=== PATIENT | male | born 1995 | race Caucasian/White ===

== ENCOUNTER 2017-11-29 22:45 | Emergency (ER) | payer SELFPAY ==
[~2017-11-29] VITALS: Ht 182.9 cm; Wt 74.8 kg
[2017-11-29 22:55] VITALS: BP 131/88
[2017-11-29] MEDS ORDERED: LIDOCAINE 2%-EPI 1:100,000 30 ML VIAL ONE (23:28)
[2017-11-29] MEDS ORDERED: LIDOCAINE 1%-EPI 1:100,000 20 ML VIAL TP ONE (23:30)
[2017-11-29] MEDS ORDERED: ACETAMINOPHEN 325 MG TABLET PO ONE (23:30)
[2017-11-29] MEDS ORDERED: IBUPROFEN 600 MG TABLET PO ONE ×2 (23:30→23:49)
[2017-11-29] MEDS ORDERED: AMOX/CLAVULANATE 875 MG TABLET PO ONE (23:30)
--- NOTE | 2017-11-29 23:32 | NUR ---
JELLY MCKNIGHT AT BEDSIDE FOR LAC REPAIR.
[2017-11-29] MEDS ORDERED: AMOX/CLAVULANATE 875 MG TABLET ONE (23:48)
[2017-11-29] MEDS ORDERED: ACETAMINOPHEN 325 MG TABLET ONE (23:49)
--- NOTE | 2017-11-30 | NUR ---
PT PRESENT IN THE ER WITH HIS FRIEND DOG BITES . UPPER BACK AND LT LOWER LEG LACERATION. AND LT INDEX FINGER SCRATCH. VITALS STABLE. PT AMBULATING NORMALLY. NO ACTIVE BLEEDING .
--- NOTE | 2017-11-30 01:24 | NUR ---
Patient discharged to home in stable condition. Written and verbal after care instructions given. Patient verbalizes understanding of instruction. Ambulatory with a steady gait. No s/s of distress noted. Resp even and unlabored.
== END 2017-11-30 01:24 | disposition home or self-care (01) ==
LOC: ER 22:46
DX: S81.852A Open bite, left lower leg, initial encounter (principal); S61.251A Open bite of left index finger without damage to nail, initial encounter; S21.251A Open bite of right back wall of thorax without penetration into thoracic cavity, initial encounter; Z60.2 Problems related to living alone; W54.0XXA Bitten by dog, initial encounter; Y93.89 Activity, other specified; Y92.89 Other specified places as the place of occurrence of the external cause; Y99.8 Other external cause status
CPT/HCPCS: 12002; 73590; 99284; A4606; A6402; A6403 ×2; J3490; Z7610

== ENCOUNTER 2017-12-01 17:43 | Emergency (ER) | payer SELFPAY ==
[~2017-12-01] VITALS: Ht 182.9 cm; Wt 74.8 kg
[2017-12-01 17:43] VITALS: BP 123/64
[2017-12-01] MEDS ORDERED: TDAP [DIPH/PERTUSSIS/TET] 0.5 ML VIAL IM ONE ×2 (18:10→18:30)
== END 2017-12-01 18:20 | disposition home or self-care (01) ==
LOC: ER 17:45
DX: Z48.01 Encounter for change or removal of surgical wound dressing (principal); S81.812D Laceration without foreign body, left lower leg, subsequent encounter; S41.011D Laceration without foreign body of right shoulder, subsequent encounter; S31.010D Laceration without foreign body of lower back and pelvis without penetration into retroperitoneum, subsequent encounter; E80.4 Gilbert syndrome; Z60.2 Problems related to living alone; W54.0XXD Bitten by dog, subsequent encounter
CPT/HCPCS: 90715; A4606; Z7610

== ENCOUNTER 2019-02-14 16:39 | Emergency (ER) | payer OTHER ==
[~2019-02-14] VITALS: Ht 185.4 cm; Wt 81.6 kg
--- NOTE | 2019-02-14 16:40 | NUR ---
PT BIB SELF C/O NAUSEA/VOMITING AND ABDOMINAL PAIN STARTED 2 HRS AGO. PT IS AAOX4, NOT IN RESPIRATORY DISTRESS, HOOKED TO MONITOR, KEPT RESTED AND COMFORTABLE, WILL CONTINUE TO MONITOR.
--- NOTE | 2019-02-14 16:50 | NUR ---
SEEN AND EXAMINED BY MARY CRAIN
[2019-02-14] MEDS ORDERED: METOCLOPRAMIDE HCL 10 MG/2 ML VIAL ONE (16:52)
--- NOTE | 2019-02-14 16:56 | NUR ---
IV LINE ESTABLISHED, BLOOD DRAWN AND SENT TO LAB.
[2019-02-14] MEDS ORDERED: IV NS 0.9% 1,000 ML BAG IV ONE ×2 (17:00→19:00)
[2019-02-14] MEDS ORDERED: METOCLOPRAMIDE HCL 10 MG/2 ML VIAL IV ONE (17:00)
[2019-02-14 17:15] LABS: BASOPHILS % (AUTO) 0.2 % (0.0-2.0); EOSINOPHILS % (AUTO) 1.3 % (0.0-6.0); HEMATOCRIT 46 % (39-51); HEMOGLOBIN 15.8 g/dL (13.5-17.5); LYMPHOCYTES # (AUTO) 1.9 /CMM (0.8-4.8); LYMPHOCYTES % (AUTO) 19.4 % (20.0-44.0); MEAN CORPUSCULAR HGB CONC 34 g/dl (31.0-36.0); MEAN CORPUSCULAR VOLUME 85 fL (80-96); MONOCYTES # (AUTO) 0.6 /CMM (0.1-1.30); MONOCYTES % (AUTO) 5.8 % (2.0-12.0); NEUTROPHILS # (AUTO) 7.3 /CMM (1.8-8.9); NEUTROPHILS % (AUTO) 73.3 % (43.0-81.0); PLATELET COUNT (AUTO) 285 /CMM (150-450); RED BLOOD CELL COUNT(AUTO) 5.42 MIL/uL (4.5-6.0)
[2019-02-14 17:21] LABS: CALCIUM, SERUM 9.6 mg/dL (8.5-10.1); CREATININE 1.1 mg/dL (0.6-1.3); POTASSIUM 3.7 mmol/L (3.5-5.1)
[2019-02-14 17:26] LABS: ALBUMIN 4.5 g/dL (3.4-5.0); BILIRUBIN,DIRECT 0.2 mg/dL (0.0-0.2); BILIRUBIN,TOTAL 4.1 mg/dL (0.2-1.0); TOTAL PROTEIN, SERUM 7.7 g/dL (6.4-8.2)
[2019-02-14] MEDS ORDERED: LORAZEPAM INJ 2 MG/ML VIAL IV ONE (17:30)
[2019-02-14] MEDS ORDERED: diphenhydrAMINE HCL 50 MG/ML VIAL IV ONE (17:30)
[2019-02-14] MEDS ORDERED: KETOROLAC TROMETHAMINE INJ 30 MG/ML VIAL ONE (17:50)
[2019-02-14] MEDS ORDERED: KETOROLAC TROMETHAMINE INJ 30 MG/ML VIAL IV ONE (18:00)
[2019-02-14] MEDS ORDERED: KETOROLAC TROMETHAMINE INJ 60 MG/2 ML VIAL IM ONE (18:00)
[2019-02-14] MEDS ORDERED: HALOPERIDOL LACTATE INJ 5 MG/ML VIAL ONE (18:51)
[2019-02-14] MEDS ORDERED: HALOPERIDOL LACTATE INJ 5 MG/ML VIAL IV ONE (19:00)
--- NOTE | 2019-02-14 19:18 | NUR ---
REPORT GIVEN TO GEORGE BARNEY FOR TRISTEN.
[2019-02-14 21:04] VITALS: BP 119/67
--- NOTE | 2019-02-14 21:04 | NUR ---
Patient is resting comfortably in bed with FRIEND AT BEDSIDE. VSS.
--- NOTE | 2019-02-14 22:04 | NUR ---
IV removed. Catheter intact and site benign. Pressure and 4x4 applied to site. No bleeding noted.Patient discharged to home in stable condition. Written and verbal after care instructions given. Patient verbalizes understanding of instruction.
== END 2019-02-14 22:05 | disposition home or self-care (01) ==
LOC: ER 16:41
DX: R11.15 Cyclical vomiting syndrome unrelated to migraine (principal); Z60.2 Problems related to living alone
CPT/HCPCS: 36415; 80048; 80076; 83690; 85025; 96361; 96374; 96375; 99283; A4216; J1200; J1630; J1885; J2060; J2765; J7030 ×2

== ENCOUNTER 2019-12-16 17:24 | Emergency (ER) | payer OTHER ==
[~2019-12-16] VITALS: Ht 185.4 cm; Wt 87.1 kg
--- NOTE | 2019-12-16 17:50 | NUR ---
From home, c/o nausea since last night and vomitting since this morning. On room air, A/Ox4, placed to bed 10.
[2019-12-16] MEDS ORDERED: IV NS 0.9% 1,000 ML BAG IV ONE ×2 (18:00→20:30)
[2019-12-16] MEDS ORDERED: ONDANSETRON HCL/PF 4 MG/2 ML VIAL IVP ONE (18:00)
[2019-12-16] MEDS ORDERED: ONDANSETRON HCL/PF 4 MG/2 ML VIAL ONE (18:01)
--- NOTE | 2019-12-16 18:05 | NUR ---
PATIENT SEEN AND EVALUATED BY KRISTINA CRAIN
[2019-12-16] MEDS ORDERED: MORPHINE SULFATE INJ 4 MG/ML DISP.SYRIN ONE ×2 (18:07→20:23)
[2019-12-16 18:13] LABS: BASOPHILS % (AUTO) 0.5 % (0.0-2.0); EOSINOPHILS % (AUTO) 0.8 % (0.0-6.0); HEMATOCRIT 50 % (39-51); HEMOGLOBIN 17.5 g/dL (13.5-17.5); LYMPHOCYTES # (AUTO) 1.6 /CMM (0.8-4.8); LYMPHOCYTES % (AUTO) 16.5 % (20.0-44.0); MEAN CORPUSCULAR HGB CONC 35 g/dl (31.0-36.0); MEAN CORPUSCULAR VOLUME 83 fL (80-96); MONOCYTES # (AUTO) 0.4 /CMM (0.1-1.30); MONOCYTES % (AUTO) 4.3 % (2.0-12.0); NEUTROPHILS # (AUTO) 7.7 /CMM (1.8-8.9); NEUTROPHILS % (AUTO) 77.9 % (43.0-81.0); PLATELET COUNT (AUTO) 272 /CMM (150-450); RED BLOOD CELL COUNT(AUTO) 6.03 MIL/uL (4.5-6.0); WHITE BLOOD COUNT (AUTO) 9.9 K/uL (4.3-11.0)
[2019-12-16] MEDS ORDERED: MORPHINE SULFATE INJ 2 MG/ML DISP.SYRIN IV ONE ×2 (18:30→20:30)
[2019-12-16 18:31] LABS: CALCIUM, SERUM 9.8 mg/dL (8.5-10.1); POTASSIUM 3.6 mmol/L (3.5-5.1)
--- NOTE | 2019-12-16 18:33 | NUR ---
PATIENT STILL NOTED TO BE VOMITING, KRISTINA REAVES GAVE ORDER TO ADMINISTER HALDOL.
[2019-12-16] MEDS ORDERED: HALOPERIDOL LACTATE INJ 5 MG/ML VIAL ONE (18:36)
[2019-12-16 18:37] LABS: ALBUMIN 4.9 g/dL (3.4-5.0); BILIRUBIN,DIRECT 0.4 mg/dL (0.0-0.2); BILIRUBIN,TOTAL 3.5 mg/dL (0.2-1.0); TOTAL PROTEIN, SERUM 8.5 g/dL (6.4-8.2)
[2019-12-16] MEDS: HALOPERIDOL LACTATE INJ 5 MG/ML VIAL IM ONE (18:40)
--- NOTE | 2019-12-16 18:53 | NUR ---
PATIENT ACCIDENTALLY PULLED OUT IV LINE.
[2019-12-16] MEDS ORDERED: IV NS 0.9% 250 ML IV ONE (18:56)
[2019-12-16] MEDS ORDERED: IOHEXOL-300 100 ML VIAL IV ONE (18:56)
--- NOTE | 2019-12-16 19:04 | NUR ---
IV LINE REINSERTED ON LEFT AC G18. PATIENT TAKEN TO RADIOLOGY FOR CT.
--- NOTE | 2019-12-16 19:27 | NUR ---
US AT BEDSIDE. WILL GO TO CT AFTERWARDS.
--- NOTE | 2019-12-16 19:28 | NUR ---
ASKED THE PT TO PROVIDE URINE SAMPLE.
--- NOTE | 2019-12-16 19:38 | NUR ---
SPOKE TO RADIOLOGY REGARDING TAKING THE PT TO CT.
--- NOTE | 2019-12-16 19:40 | NUR ---
PT BROUGHT TO CT
--- NOTE | 2019-12-16 19:40 | NUR ---
UNABLE TO PROVIDE URINE.
--- NOTE | 2019-12-16 19:50 | NUR ---
BROUGHT BACK FROM CT
--- NOTE | 2019-12-16 20:09 | NUR ---
URINE COLLECTED AND SENT TO LAB
--- NOTE | 2019-12-16 21:19 | NUR ---
IV removed. Catheter intact and site benign. Pressure and 4x4 applied to site. No bleeding noted.
--- NOTE | 2019-12-16 21:19 | NUR ---
Patient discharged to home in stable condition. Written and verbal after care instructions given. Patient verbalizes understanding of instruction and RX. Pt denies pain. Left with his girlfriend. Ambulated with steady gait. vss.
[2019-12-16 21:20] VITALS: BP 141/75
== END 2019-12-16 21:21 | disposition home or self-care (01) ==
LOC: ER 17:31
DX: K52.9 Noninfective gastroenteritis and colitis, unspecified (principal); Z60.2 Problems related to living alone
CPT/HCPCS: 36415; 74177; 76705; 80048; 80076; 83690; 85025; 96361; 96372; 96374; 96375; 96376; 99285; J1630; J2270 ×2; J2405; J7030 ×2; J7050; Q9967

== ENCOUNTER 2019-12-19 11:26 | Inpatient (IN) | payer OTHER ==
[~2019-12-19] VITALS: Ht 185.4 cm; Wt 83.9 kg
[2019-12-19] MEDS ORDERED: ONDANSETRON HCL/PF 4 MG/2 ML VIAL ONE (11:46)
[2019-12-19 11:57] LABS: BASOPHILS % (AUTO) 0.3 % (0.0-2.0); HEMATOCRIT 51 % (39-51); HEMOGLOBIN 17.9 g/dL (13.5-17.5); LYMPHOCYTES # (AUTO) 1.6 /CMM (0.8-4.8); LYMPHOCYTES % (AUTO) 18.7 % (20.0-44.0); MEAN CORPUSCULAR HGB CONC 35 g/dl (31.0-36.0); MEAN CORPUSCULAR VOLUME 83 fL (80-96); MONOCYTES # (AUTO) 0.6 /CMM (0.1-1.30); MONOCYTES % (AUTO) 6.6 % (2.0-12.0); NEUTROPHILS # (AUTO) 6.3 /CMM (1.8-8.9); NEUTROPHILS % (AUTO) 73.4 % (43.0-81.0); PLATELET COUNT (AUTO) 290 /CMM (150-450); RED BLOOD CELL COUNT(AUTO) 6.16 MIL/uL (4.5-6.0); WHITE BLOOD COUNT (AUTO) 8.6 K/uL (4.3-11.0)
[2019-12-19] MEDS ORDERED: ONDANSETRON HCL/PF 4 MG/2 ML VIAL IVP ONE (12:00)
[2019-12-19] MEDS ORDERED: MORPHINE SULFATE INJ 2 MG/ML DISP.SYRIN IV ONE (12:00)
[2019-12-19] MEDS ORDERED: IV NS 0.9% 1,000 ML BAG IV ONE ×2 (12:00→13:00)
--- NOTE | 2019-12-19 12:02 | NUR ---
c/o abd pain, and nausea vomiting since this morning, Hx colitis. PT AAOX4, VSS. RR EVEN & UNLABORED. DENIES CP, SOB, DIZZINESS AT THIS TIME. PT SEEN & EVAL'D BY DR. CHERRY. MEDICATED ORDERED, PT AISHA WELL. WILL CONT TO MONITOR.
[2019-12-19 12:12] LABS: ALBUMIN 5.2 g/dL (3.4-5.0); BILIRUBIN,DIRECT 0.4 mg/dL (0.0-0.2); BILIRUBIN,TOTAL 4.9 mg/dL (0.2-1.0); CALCIUM, SERUM 9.7 mg/dL (8.5-10.1); CREATININE 1.1 mg/dL (0.6-1.3); POTASSIUM 3.2 mmol/L (3.5-5.1); TOTAL PROTEIN, SERUM 8.8 g/dL (6.4-8.2)
[2019-12-19] MEDS ORDERED: FINA1TAB11 PO (12:12)
[2019-12-19] MEDS ORDERED: PROCHLORPERAZINE EDISYLATE 10 MG/2 ML VIAL IVP ONE (12:30)
[2019-12-19] MEDS ORDERED: diphenhydrAMINE HCL 50 MG/ML VIAL IV ONE (12:30)
[2019-12-19] MEDS ORDERED: diphenhydrAMINE HCL 50 MG/ML VIAL ONE (12:39)
[2019-12-19] MEDS ORDERED: POTASSIUM CL. PREMIX PERIPHER. 150 ML ONE (12:39)
[2019-12-19] MEDS ORDERED: PROCHLORPERAZINE EDISYLATE 10 MG/2 ML VIAL ONE (12:39)
[2019-12-19] MEDS: POTASSIUM CL. PREMIX PERIPHER. 50 ML IV SCH ×3 (12:52→15:03)
[2019-12-19] MEDS ORDERED: LORAZEPAM INJ 2 MG/ML VIAL ONE (12:57)
[2019-12-19] MEDS ORDERED: LORAZEPAM INJ 2 MG/ML VIAL IV ONE (13:00)
--- NOTE | 2019-12-19 13:09 | NUR ---
negative covid19 result
--- NOTE | 2019-12-19 14:07 | NUR ---
PT ASLEEP, EASILY AWAKEN BY VERBAL STIMULI. DENIES ABD PAIN, NAUSEA AT THIS TIME. WILL CONT TO MONITOR.
--- NOTE | 2019-12-19 15:24 | NUR ---
CALLED FOR MEDR BED
--- NOTE | 2019-12-19 15:35 | NUR ---
GOT BED 323-1
--- NOTE | 2019-12-19 15:52 | NUR ---
report given to nurse. pt awaiting transfer to floor.
[2019-12-19 16:00] VITALS: BP 141/89
--- NOTE | 2019-12-19 16:02 | NUR ---
ADMISSION MED SURG NOTES PT ADMITTED AT MED SURG FLOOR AT 323-1 FOR INTRACTABLE PAIN, VOMITING X 3 DAYS. PT AAOX4, ABLE TO MAKE NEEDS KNOWN, RESPONSIVE TO ALL STIMULI. RESPIRATION EVEN AND NON LABORED WITH NO ACUTE RESPIRATORY DISTRESS, ON RA. ABD SOFT AND NON DISTENDED WITH ACTIVE BOWEL SOUNDS, C/O NAUSEA, EMESIS BAG PROVIDED. PT DENIES PAIN, ONLY DISCOMFORT AT ABD, AISHA WELL. PT SKIN WARM TO TOUCH AND DRY, NO SKIN BREAKDOWN VISIBLE. REFUSED BODY SKIN ASSESSMENT. IV SITE AT RIGHT AC #18, PATENT IN FLUSHING, SITE HAS NO S/SX OF PAIN AND DISCOMFORT. CALL LIGHT WITHIN REACH, BED IN LOW LOCKED POSITION, SRX2 UP FOR SAFETY. DR. MARTIN NOTIFIED WITH ADMISSION. ALL CONCERNS ATTENDED,WILL CONTINUE POC.
[2019-12-19] MEDS ORDERED: MAG HYDROX/AL HYDROX/SIMETH 30 ML UDC PO PRN (18:30)
[2019-12-19] MEDS ORDERED: ACETAMINOPHEN 325 MG TABLET PO PRN (18:30)
[2019-12-19] MEDS ORDERED: MAGNESIUM HYDROXIDE 30 ML UDC PO PRN (18:30)
[2019-12-19] MEDS ORDERED: Z GUARD REMEDY 2 OZ OINT TP PRN (18:30)
[2019-12-19] MEDS ORDERED: ZOLPIDEM TARTRATE 5 MG TABLET PO PRN (18:30)
[2019-12-19] MEDS ORDERED: HYDROCODONE/APAP 5/325MG TABLET PO PRN (18:30)
--- NOTE | 2019-12-19 19:24 | NUR ---
SERVICER TRAVEL TRAILERS CLOSING NOTES PT HAS NO TRISTEN SINCE ADMISSION AT MED SURG, CONTINUE TO HAVE C/O OF NAUSEA AND ABDOMINAL DISCOMFORT. NEW ORDERS ACKNOWLEDGED. SAFETY PRECAUTIONS PLACED. ALL NEEDS ATTENDED. REPORT GIVEN TO FOLLOWING NURSE.
--- NOTE | 2019-12-19 19:28 | NUR ---
MS RN OPENING NOTES RECEIVED PATIENT RESTING IN BED COMFORTABLY; A/OX4; BREATHING EVEN AND UNLABORED; TOLERATING ROOM AIR WELL; NO SOB NOTED; PATIENT NPO; RAC #18 INTACT AND PATENT, FLUSHING WELL; NO S/S OF REDNESS OR INFILTRATION NOTED; SAFETY PRECAUTIONS IMPLEMENTED; BED LOCKED IN LOW POSITION; SIDE RAILSX2; CALL LIGHT WITHIN REACH; WILL CONT TO MONITOR
[2019-12-19 20:00] VITALS: BP 121/69
[2019-12-19 20:30] VITALS: BP 121/69
[2019-12-19] MEDS: IV D5/0.45 NACL 1,000 ML IV PRN (21:58)
--- NOTE | 2019-12-20 06:27 | NUR ---
MS RN CLOSING NOTES PATIENT RESTING IN BED COMFORTABLY; BREATHING EVEN AND UNLABORED; NO DISTRESS NOTED; R AC # 18 INTACT AND PATENT, TOLERATING IVF WELL; PATIENT ABLE TO MAKE NEEDS KNOWN; ALL NEEDS RENDERED; SAFETY PRECAUTIONS IMPLEMENTED; BED LOCKED IN LOW POSITION; SIDE RAILSX2; CALL LIGHT WITHIN EASY REACH; WILL ENDORSE TRISTEN TO ONCOMING NURSE PATIENT SIGNED CONSENT FOR CT SCAN OF ABDOMEN WITH CONTRAST; UNKNOWN WHAT TIME PATIENT WILL BE PICKED UP; WILL CONT TO MONITOR
[2019-12-20] MEDS: PANTOPRAZOLE 40 MG TABLET.DR PO SCH (07:30)
[2019-12-20 07:51] LABS: BASOPHILS # (AUTO) 0.1 /CMM (0.0-0.2); BASOPHILS % (AUTO) 0.7 % (0.0-2.0); EOSINOPHILS % (AUTO) 1.5 % (0.0-6.0); HEMATOCRIT 43 % (39-51); LYMPHOCYTES # (AUTO) 2.6 /CMM (0.8-4.8); LYMPHOCYTES % (AUTO) 33.5 % (20.0-44.0); MEAN CORPUSCULAR HGB CONC 35 g/dl (31.0-36.0); MEAN CORPUSCULAR VOLUME 84 fL (80-96); MONOCYTES # (AUTO) 0.7 /CMM (0.1-1.30); MONOCYTES % (AUTO) 9.4 % (2.0-12.0); NEUTROPHILS # (AUTO) 4.2 /CMM (1.8-8.9); NEUTROPHILS % (AUTO) 54.9 % (43.0-81.0); PLATELET COUNT (AUTO) 244 /CMM (150-450); RED BLOOD CELL COUNT(AUTO) 5.18 MIL/uL (4.5-6.0); WHITE BLOOD COUNT (AUTO) 7.6 K/uL (4.3-11.0)
[2019-12-20 08:00] VITALS: BP 129/67
--- NOTE | 2019-12-20 08:00 | NUR ---
RN OPENING NOTE Patient is resting in bed. A/O x4,. showing no signs of acute distress or SOB, stable on RA. Patient denies N/V/D and abdominal pain at this time. Patient is currently NPO. Per Dr. Grier for patient to be on clear liquid diet after CTA w/contrast today. IV line is clean and intact flushing well RAC#18g. Patient is ambulatory and independent with care. Will continue with plan of care.
[2019-12-20 08:06] LABS: CALCIUM, SERUM 8.6 mg/dL (8.5-10.1); CREATININE 0.9 mg/dL (0.6-1.3); MAGNESIUM 2.3 mg/dL (1.8-2.4); PHOSPHORUS 3.6 mg/dL (2.5-4.9); POTASSIUM 3.5 mmol/L (3.5-5.1)
[2019-12-20 08:11] LABS: THYROID STIMULATING HORMONE 1.328 uIU/mL (0.358-3.74)
[2019-12-20] MEDS ORDERED: IOHEXOL-350 100 ML VIAL IV ONE ×2 (10:25→10:34)
[2019-12-20] MEDS ORDERED: IV NS 0.9% 250 ML IV ONE (10:25)
[2019-12-20] MEDS ORDERED: CT SWABBABLE VALVE TRANS SET 1 EA INFUS.SET MC ONE (10:25)
[2019-12-20 16:00] VITALS: BP_SYST 108; BP_SYST 109; BP_DIAS 61; BP_DIAS 63
[2019-12-20] MEDS: ONDANSETRON HCL/PF 4 MG/2 ML VIAL IVP PRN (18:03)
--- NOTE | 2019-12-20 18:13 | NUR ---
RN NOTE Patient having episode of N/V about 200mls of emesis/gastric contents. Vital signs BP 156/63 HR87 T 98.5F RR 20 O2 SAT 97% ON RA. Zofran IV given. Notified MD and received T.O order for reglan 10mg IV q8hr PRN and NPO status. IVF D51/2 NS running @ 125mls/hour. Patient is stable on RA. Patient able to ambulate and has BRP. All patient needs met, all due medications given, patient kept clean and dry throughout shift. Will continue to monitor.
[2019-12-20] MEDS: IV D5/0.45 NACL 1,000 ML IV PRN (18:18)
[2019-12-20] MEDS: METOCLOPRAMIDE HCL 10 MG/2 ML VIAL IV PRN (18:44)
--- NOTE | 2019-12-20 18:59 | NUR ---
RN NOTE Patient continues to experience N/V, Reglan 10mg I given. Charge nurse made aware. Will endorse to extruder operator multiple for TRISTEN.
--- NOTE | 2019-12-20 19:40 | NUR ---
MS RN OPENING NOTE: Patient in bed resting comfortably. Patient alert and oriented x4. Patient able to make needs known. Observed patient ambulate to the bathroom with steady gate. Patient on room air, breathing even and unlabored; no SOB or acute respiratory distress noted. IV access on right AC, dressing intact and dry, patent, no redness, or infiltration. Safety precaution is in place, bed is in the lowest level, bed is locked, side rails x2 are up, and call light is within reach. Will continue to monitor.
[2019-12-20 20:00] VITALS: BP 141/70
[2019-12-20] MEDS: MORPHINE SULFATE INJ 4 MG/ML DISP.SYRIN IV PRN (21:34)
--- NOTE | 2019-12-20 21:34 | NUR ---
MS RN NOTE: Patient complains of Abdominal pain and rates pain an 8 on a 0-10 numerical scale. Patient describes pain as radiating. Administered PRN Morphine per MD order. Will continue to monitor.
--- NOTE | 2019-12-20 22:04 | NUR ---
PASS WORKER NOTE: Reassess pain. Patient in bed sleeping comfortably. No signs of pain or discomfort noted.
--- NOTE | 2019-12-20 23:00 | NUR ---
MS RN NOTE: Late entry ............................. Patient complained of abdominal pain. Patient rated pain an 8 on a 0-10 numerical scale. Patient vomiting and had PO Imbler for PRN pain. Made MD aware. Epic ordered, Morphine IV 4mg q4h PRN. Read order and carried out.
[2019-12-21] MEDS: IV D5/0.45 NACL 1,000 ML IV PRN ×3 (04:43→23:51)
--- NOTE | 2019-12-21 06:36 | NUR ---
MS RN CLOSING NOTE: Patient in bed sleeping comfortably. All needs are met. Patient is breathing well with no acute respiratory distress or SOB. Safety measures is maintained, bed is in the lowest position, bed is locked, side rails x2 are up, and call light is within reach. Will endorse to next shift.
--- NOTE | 2019-12-21 07:30 | NUR ---
MS RN OPENING NOTES RECEIVED PATIENT IN BED. AOX4. NO CARDIAC OR RESPIRATPRY DISTRESS NOTED. NO SOB NOTED. SATURATING WELL ON ROOM AIR. PT KEPT NPO FOR BOWEL REST. IV ACCESS NOTED ON R AC #18 INTACT AND PATENT, FLUSHING WELL; NO S/S OF REDNESS OR INFILTRATION NOTED; SAFETY PRECAUTIONS IMPLEMENTED; BED LOCKED IN LOW POSITION; SIDE RAILSX2; CALL LIGHT WITHIN REACH; WILL CONT TO MONITOR
[2019-12-21] MEDS: MORPHINE SULFATE INJ 4 MG/ML DISP.SYRIN IV PRN ×2 (07:55→13:49)
[2019-12-21] MEDS: PANTOPRAZOLE 40 MG TABLET.DR PO SCH (07:55)
[2019-12-21 08:00] VITALS: BP 109/76
[2019-12-21 08:50] LABS: BASOPHILS % (AUTO) 0.4 % (0.0-2.0); EOSINOPHILS % (AUTO) 1.3 % (0.0-6.0); HEMATOCRIT 46 % (39-51); HEMOGLOBIN 15.6 g/dL (13.5-17.5); LYMPHOCYTES # (AUTO) 2.5 /CMM (0.8-4.8); LYMPHOCYTES % (AUTO) 30.2 % (20.0-44.0); MEAN CORPUSCULAR HGB CONC 34 g/dl (31.0-36.0); MEAN CORPUSCULAR VOLUME 84 fL (80-96); MONOCYTES # (AUTO) 0.7 /CMM (0.1-1.30); MONOCYTES % (AUTO) 8.4 % (2.0-12.0); NEUTROPHILS # (AUTO) 4.9 /CMM (1.8-8.9); NEUTROPHILS % (AUTO) 59.7 % (43.0-81.0); PLATELET COUNT (AUTO) 244 /CMM (150-450); RED BLOOD CELL COUNT(AUTO) 5.43 MIL/uL (4.5-6.0); WHITE BLOOD COUNT (AUTO) 8.1 K/uL (4.3-11.0)
[2019-12-21 09:01] LABS: CALCIUM, SERUM 8.7 mg/dL (8.5-10.1); CREATININE 0.9 mg/dL (0.6-1.3); MAGNESIUM 2.3 mg/dL (1.8-2.4); PHOSPHORUS 3.5 mg/dL (2.5-4.9); POTASSIUM 3.3 mmol/L (3.5-5.1)
[2019-12-21] MEDS: ONDANSETRON HCL/PF 4 MG/2 ML VIAL IVP PRN (10:03)
[2019-12-21] MEDS: METOCLOPRAMIDE HCL 10 MG/2 ML VIAL IV PRN (12:11)
[2019-12-21] MEDS ORDERED: LORAZEPAM INJ 2 MG/ML VIAL ONE (12:27)
--- NOTE | 2019-12-21 12:28 | NUR ---
ATIVAN ATIVAN 2MNG ADMINISTERED PER MD ORDER. TO ADMINISTER NOW. ERROR MADE UPON CLICKING ON THE EMAR. MEDICATION WAS ACTUALLY ADMINISTERED AT 1228.
[2019-12-21] MEDS ORDERED: LORAZEPAM INJ 2 MG/ML VIAL IV PRN (12:30)
[2019-12-21] MEDS: POTASSIUM CL. PREMIX PERIPHER. 50 ML IV SCH ×4 (13:09→16:09)
[2019-12-21 16:00] VITALS: BP 127/72
[2019-12-21] MEDS: PROCHLORPERAZINE EDISYLATE 10 MG/2 ML VIAL IM PRN (17:15)
--- NOTE | 2019-12-21 17:30 | NUR ---
COMPAZINE COMPAZINE ADMINISTERED PER MD ORDER VIA IM. PT VOMITED X1.
--- NOTE | 2019-12-21 18:56 | NUR ---
RN CLOSING NOTES PATIENT IN BED. AOX4. NO CARDIAC OR RESPIRATORY DISTRESS NOTED. NO SOB NOTED. SATURATING WELL ON ROOM AIR. PT KEPT NPO FOR BOWEL REST. IV ACCESS NOTED ON R AC #18 INTACT AND PATENT, FLUSHING WELL; NO S/S OF REDNESS OR INFILTRATION NOTED; POTASSIUM REPLACED TODAY. PAIN WAS MANAGED. ANTI-EMETICS GIVEN FOR NAUSEA AND VOMITING NEEDED. ALL DUE MEDS ADMINISTERED. NO ASE NOTED. SAFETY PRECAUTIONS IMPLEMENTED; BED LOCKED IN LOW POSITION; SIDE RAILSX2; CALL LIGHT WITHIN REACH; WILL CONT TO MONITOR
[2019-12-21 20:00] VITALS: BP 132/50
--- NOTE | 2019-12-21 20:12 | NUR ---
MS/RN OPENING NOTE Patient awake in bed, A/O x4, ambulatory. No JVD. CRP <3seconds. Tongue midline, no tracheal deviation. Breath sounds even, clear, unlabored. Patient denies N/V/P. No acute distress or SOB noted. Abdomen soft, non-tender, BS active. Skin warm, pink, dry, intact. IV site RAC 18g running D51/2NS @125 ml/hr, no infiltration. Patient is NPO. Bed in low position, wheels locked, side rails up x2, call light within reach.
[2019-12-21 20:23] VITALS: BP 132/50
--- NOTE | 2019-12-22 06:02 | NUR ---
MS/RN CLOSING NOTE Patient asleep in bed, A/O x4, ambulatory. Breath sounds even, clear, unlabored. Patient denies N/V/P. No acute distress or SOB noted. Abdomen soft, non-tender, BS active. Skin warm, pink, dry, intact. IV site RAC 18g running D51/2NS @125 ml/hr, no infiltration. All scheduled medications administered as ordered. Patient is NPO. Bed in low position, wheels locked, side rails up x2, call light within reach.
[2019-12-22] MEDS: IV D5/0.45 NACL 1,000 ML IV PRN (06:34)
[2019-12-22] MEDS: PANTOPRAZOLE 40 MG TABLET.DR PO SCH (06:38)
[2019-12-22] MEDS: ONDANSETRON HCL/PF 4 MG/2 ML VIAL IVP PRN ×3 (06:38→19:53)
--- NOTE | 2019-12-22 07:28 | NUR ---
MS RN OPENING NOTE PATIENT IN BED RESTING COMFORTABLY. PATIENT IN NO ACUTE DISTRESS. NO SOB NOTED. PATIENT BREATHING IS EVEN AND UNLABORED. PATIENT STATING FEELING RESTLESS AND REQUESTING ATIVAN PRN. ATIVAN PRN ORDERED TO BE GIVEN. SAFETY PRECAUTIONS IN PLACE. PATIENT BED IS LOCKED AND IN LOWEST POSITION. CALL LIGHT WITHIN REACH. WILL CONTINUE TO MONITOR.
[2019-12-22] MEDS: LORAZEPAM INJ 2 MG/ML VIAL IV PRN ×3 (07:52→21:07)
[2019-12-22 08:00] VITALS: BP 149/72
[2019-12-22 08:12] LABS: CALCIUM, SERUM 8.8 mg/dL (8.5-10.1); MAGNESIUM 2.2 mg/dL (1.8-2.4); POTASSIUM 3.3 mmol/L (3.5-5.1)
[2019-12-22 08:49] LABS: ALBUMIN 4.2 g/dL (3.4-5.0); BILIRUBIN,DIRECT 0.2 mg/dL (0.0-0.2); BILIRUBIN,TOTAL 4.6 mg/dL (0.2-1.0); TOTAL PROTEIN, SERUM 7.3 g/dL (6.4-8.2)
[2019-12-22] MEDS: POTASSIUM CL. PREMIX PERIPHER. 50 ML IV SCH ×4 (09:00→12:39)
[2019-12-22] MEDS: PROCHLORPERAZINE EDISYLATE 10 MG/2 ML VIAL IM PRN (09:09)
--- NOTE | 2019-12-22 09:09 | NUR ---
MS RN NOTE CARSON WHATLEY SEEN AND EVALUATED PATIENT. PATIENT REQUESTING COMPAZINE FOR NAUSEA AND VOMITING. COMPAZINE GIVEN ORDERED.
--- NOTE | 2019-12-22 15:42 | NUR ---
MS RN NOTE PER CARSON WHATLEY KEEP PATIENT NPO AFTER MIDNIGHT IN CASE FOR POSSIBLE EGD BY DR. BARRON TOMORROW.
[2019-12-22 16:00] VITALS: BP 107/55
--- NOTE | 2019-12-22 17:38 | NUR ---
MS RN NOTE PER GLENN ROLL SCALE WORKER PATIENT WILL BE TRANSFERRED TO DIFFERENT FACILITY FOR FURTHER CARE AND INSURANCE PURPOSES. AND WILL NOT HAVE EGD PERFORMED AT [facility]. CARSON IS AWARE. PER GLENN WILL INFORM US WHEN BED IS AVAILABLE
--- NOTE | 2019-12-22 17:48 | NUR ---
MS RN NOTE INFORMED DR. BARRON THAT PATIENT IS TO BE TRANSFERRED TO AN ACUTE FACILITY TONIGHT DUE TO INSURANCE PURPOSES AND WILL NOT BE PRESENT AT [facility] FOR EGD. INFORMED HIM WILL HOLD GOLYETLY MEDICATION. IS AWARE. AND CARSON IS AWARE OF SITUATION.
[2019-12-22] MEDS ORDERED: PEG 3350/NA SULF,BICARB,CL/KCL 4,000 ML BOTTLE PO ONE (18:00)
--- NOTE | 2019-12-22 19:15 | NUR ---
MS RN CLOSING NOTE PATIENT IN BED RESTING COMFORTABLY. PATIENT IN NO ACUTE DISTRESS. NO SOB NOTED. PATIENT BREATHING IS EVEN AND UNLABORED. SAFETY PRECAUTIONS IN PLACE. DC INSTRUCTIONS PROVIDED TO PATIENT. PATIENT VERBALIZED UNDERSTANDING. SKIN ASSESSED, NO NEW SKIN BREAKDOWN NOTED. PATIENT STATES NO PAIN AT THIS TIME. PATIENT AWAITING BED FROM HOSPITAL FOR ACUTE TO ACUTE TRANSFER. [facility]OWER BUNCHER OR [facility] HAS BEEN IN DISCUSSION AND STATED HOSPITAL WILL CALL WHEN APPROVED AND READY. CARSON WHATLEY AWARE OF DISCHARGE AND SPOKEN WITH PATIENT REGARDING TRANSFER. BELONGINGS LIST SIGNED AND HAS BELONGINGS WITH HIM AT THIS TIME. ENDORSED REST OF DISCHARGE TO CUSTOMER SUCCESS SPECIALIST RN. NEEDS AND CONCERNS ADDRESSED. PATIENT KEPT CLEAN, DRY, AND COMFORTABLE THROUGHOUT SHIFT. PATIENT BED IS LOCKED AND IN LOWEST POSITION. CALL LIGHT WITHIN REACH. WILL ENDORSE CARE TO PM SHIFT FOR TRISTEN.
--- NOTE | 2019-12-22 19:15 | NUR ---
MS GEORGE OPEN NOTES PT IS SITTING IN BED. A/O X4. ON RA, NO SOB/ ACUTE RESPIRATORY DISTRESS NOTED. IV IN R AC #18G IS PATENT AND INTACT. PT IS ABLE TO AMBULATE. BED IS IN LOWEST LOCKED POSITION WITH SIDE RAILS UP X2, SEMI FOWLERS. CALL LIGHT IS WITHIN REACH. WILL CONTINUE TO MONITOR.
--- NOTE | 2019-12-22 19:53 | NUR ---
MS RN NOTES ZOFRAN 2ML ADMINISTERED. PT IS VOMITING/ HAS NAUSEA. WILL CONTINUE TO MONITOR.
[2019-12-22 20:00] VITALS: BP_SYST 132; BP_SYST 150; BP_DIAS 75; BP_DIAS 86
--- NOTE | 2019-12-22 23:05 | NUR ---
MS RN NOTES SPOKE WITH CRISTHIAN REGARDING PT'S TRANSFER. PER CRISTHIAN, [facility] DOES NOT HAVE AN ADMITTING DOCTOR AT THE MOMENT THEREFORE TRANSFER WILL BE POSTPONED TO POSSIBLY TOMORROW. WILL CONTINUE TO MONITOR PATIENT
[2019-12-23] MEDS: IV D5/0.45 NACL 1,000 ML IV PRN ×2 (04:28→12:34)
[2019-12-23] MEDS ORDERED: SORBITOL SOLUTION 30 ML PO ONE (06:00)
--- NOTE | 2019-12-23 07:15 | NUR ---
MS RN NOTES RECEIVED PATIENT IN BED ASLEEP, AROUSABLE TO VERBAL AND TACTILE STIMULI. ALERT AND ORIENTED X4. NO SOB. DENIES ANY C/O PAIN NOR DISCOMFORT AT THIS TIME. RIGHT AC # 18 INTACT AND PATENT INFUSING D5 1/2 NS AT 125 ML/HR. PER PATIENT, SLEPT WELL LAST NOC. BED IN LOWEST POSITION, LOCKED. AMBULATORY WITH STEADY GAIT. CALL LIGHT WITHIN REACH. ABLE TO VERBALIZE NEEDS.
--- NOTE | 2019-12-23 07:22 | NUR ---
MS RN CLOSE NOTES PATIENT IS LAYING IN BED. A/O X4. ON RA, NO SOB/ ACUTE RESPIRATORY DISTRESS NOTED. IV IN R AC #18G IS PATENT AND INTACT. PT DENIES ANY PAIN AT THE MOMENT. BED IS IN LOWEST LOCKED POSITION WITH SIDE RAILS UP X2, SEMI FOWLERS. CALL LIGHT IS WITHIN REACH. WILL ENDORSE TO AM NURSE.
[2019-12-23 08:00] VITALS: BP 111/58
[2019-12-23] MEDS: PANTOPRAZOLE 40 MG TABLET.DR PO SCH (08:12)
[2019-12-23] MEDS: PROCHLORPERAZINE EDISYLATE 10 MG/2 ML VIAL IM PRN ×2 (08:13→17:41)
[2019-12-23 09:23] LABS: BASOPHILS % (AUTO) 0.4 % (0.0-2.0); EOSINOPHILS % (AUTO) 0.9 % (0.0-6.0); HEMATOCRIT 47 % (39-51); HEMOGLOBIN 16.7 g/dL (13.5-17.5); LYMPHOCYTES # (AUTO) 1.4 /CMM (0.8-4.8); LYMPHOCYTES % (AUTO) 20.1 % (20.0-44.0); MEAN CORPUSCULAR HGB CONC 35 g/dl (31.0-36.0); MEAN CORPUSCULAR VOLUME 83 fL (80-96); MONOCYTES # (AUTO) 0.5 /CMM (0.1-1.30); MONOCYTES % (AUTO) 7.7 % (2.0-12.0); NEUTROPHILS % (AUTO) 70.9 % (43.0-81.0); PLATELET COUNT (AUTO) 233 /CMM (150-450); RED BLOOD CELL COUNT(AUTO) 5.74 MIL/uL (4.5-6.0)
[2019-12-23 09:28] LABS: CALCIUM, SERUM 9.4 mg/dL (8.5-10.1); POTASSIUM 3.2 mmol/L (3.5-5.1)
[2019-12-23] MEDS: LORAZEPAM INJ 2 MG/ML VIAL IV PRN ×2 (10:11→16:30)
[2019-12-23] MEDS: POTASSIUM CL. PREMIX PERIPHER. 50 ML IV SCH ×6 (11:04→17:41)
[2019-12-23] MEDS ORDERED: PROC10TA29 PO (15:49)
[2019-12-23] MEDS ORDERED: PANT40TA2 PO (15:49)
[2019-12-23] MEDS ORDERED: LORA-259 PO (15:49)
[2019-12-23 16:00] VITALS: BP 140/76
[2019-12-23 16:57] LABS: ALBUMIN 4.6 g/dL (3.4-5.0); BILIRUBIN,DIRECT 0.3 mg/dL (0.0-0.2); BILIRUBIN,TOTAL 4.6 mg/dL (0.2-1.0); TOTAL PROTEIN, SERUM 7.9 g/dL (6.4-8.2)
--- NOTE | 2019-12-23 19:10 | NUR ---
MS RN NOTES PATIENT FOR DISCHARGE. DISCHARGE INSTRUCTION, PACKET AND EDUCATION PROVIDED AND GIVEN TO PATIENT. PATIENT VERBALIZES UNDERSTANDING. PATIENT STATED HE FEELS MUCH BETTER COMPARED TO THIS MORNING. DENIES ANY C/O PAIN NOR DISCOMFORT. PATIENT ALSO STATED THAT HE HAS A GI APPOINTMENT BUT WAS UNABLE TO MAKE IT SINCE HE WAS ADMITTED AND WILL CALL GI OFFICE TO SCHEDULE AN APPOINTMENT. IV ACCES REMOVED WITH CATHETER TIP INTACT WITH GAUZE DRESSING IN PLACE. ALL BELONGINGS ACCOUNTED FOR. PATIENT PICKED UP BE GIRLFRIEND AND LEFT IN STABLE CONDITION. IN NO APPARENT DISTRESS.
== END 2019-12-23 19:10 | disposition home or self-care (01) | DRG 394 ==
LOC: ER 11:28 → MED 15:38
PROVIDERS: ADMIT Student in an Organized Health Care Education/Training Program; ATTEND Nurse Practitioner Acute Care
DX: R11.15 Cyclical vomiting syndrome unrelated to migraine (principal); E87.2 Acidosis; E87.6 Hypokalemia; K76.9 Liver disease, unspecified; Z79.899 Other long term (current) drug therapy; G43.909 Migraine, unspecified, not intractable, without status migrainosus; E80.6 Other disorders of bilirubin metabolism; Z83.79 Family history of other diseases of the digestive system; D18.03 Hemangioma of intra-abdominal structures
CPT/HCPCS: 36415; 74160-TC; 76700-TC; 80048-TC; 80061-TC; 80076-TC; 83690-TC; 83735-TC; 84100-TC; 84443-TC; 85025-TC; 87081-TC; C9803; G0378; G0480; J0780; J1200; J2060; J2270; J2405; J2765; J3230; J3480; J3490; J7030; J7050; Q9967